=== PATIENT | female | born 1965 | race Caucasian/White ===

== ENCOUNTER 2017-09-06 08:31 | Inpatient (IN) | payer OTHER ==
--- NOTE | 2017-09-06 08:47 | EDPHY ---
HPI/HX/ROS/PE/MDM Narrative: CHIEF COMPLAINT: Cough, short of breath, fever HISTORY OF PRESENT ILLNESS: The patient is a 51 y/o female arriving via EMS for cough, shortness of breath, and fever. She lives in [place], [place] and drove her with her . Two days ago, when they left [place], she felt like she had a cold with sore throat, weakness, and fever. Symptoms continued and worsened yesterday. Last night, she developed a cough and had difficulty breathing. She reports the albuterol nebulizer en route helped her coughing and shortness of breath. She has some chest discomfort from coughing. She denies any other associated symptoms. She denies history of asthma, emphysema, blood clots, or any other associated medical history. No chills, palpitations, vomiting, diarrhea, urinary complaints, headache, lightheadedness. REVIEW OF SYSTEMS: Aside from elements discussed in the HPI, a comprehensive 10-point review of systems was reviewed and is negative. PAST MEDICAL HISTORY: Denies SOCIAL HISTORY: From [place], at bedside, on vacation VITAL SIGNS: Reviewed by me GENERAL: Well-developed, well-nourished. HEENT: Atraumatic. Eyes: No icterus, no injection. Mouth: moist mucous membranes. Erythematic. No lesions. Neck: supple with no adenopathy. LUNGS: Coarse breath sounds at base of lungs with diffuse wheezes and a harsh wheezes cough. No rhonchi or rales. CARDIAC: Tachycardic regular rate and rhythm, no rubs, murmurs or gallops. ABDOMEN: Soft, nontender, nondistended, bowel sounds normal. BACK: No CVA tenderness. EXTREMITIES: No trauma. No edema. Range of motion is normal throughout. NEURO: Alert and oriented, grossly nonfocal. SKIN: Warm and dry, no rash. PSYCHIATRIC: Normal mentation, no agitation. ED Course: 12-LEAD EKG: Please see the full report in [facility]. My interpretation: Sinus tachycardia, probable left atrial abnormalities, borderline T- abnormalities in the anterior leads The patient presents with cough and shortness of breath. She reports cold symptoms starting two days ago and worsening last night. She states her symptoms improved with an albuterol nebulizer she received en route by EMS. Her chest X-ray shows possible early infiltrate. On exam, she has course breath sounds with diffuse wheezing and a harsh wheezy cough. She is tachycardic in the 120s. Plan for CBC, basic metabolic panel, coagulation, bilirubin, abg, d- dimer, blood cultures, urinalysis, and respiratory panel to evaluate etiology. 10:50- Current labs are not concerning but the patient continues to be tachycardic and hypoxic. I feel at this point she will likely need to be admitted. 11:30- EKGS shows borderline T abnormalities and possible left atrial abnormalities. 12:10- I reassessed the patient and found her condition slightly improved. Her O2 stat was improved but she was on oxygen. I informed the patient of the results of her workup. I advised she likely will need to be admitted. She agrees to this course of action. 12:30 - Dr. Mariee will be the admitting physician. MDM: Differential diagnosis for the patient's shortness of breath was considered including but not limited to pulmonary infectious processes, COPD exacerbation, pulmonary emboli, pulmonary edema, congestive heart failure, and cardiac causes. - Data Points Imaging Results: Imaging Impressions Chest X-Ray 09/06/17 08:39 Impression: Mild perihilar bronchitis, without some questionable subsegmental atelectasis versus an early posterobasal infiltrate. Clinical correlation is suggested. Findings were discussed with Jessica Varner MD at 9:33, on 09/06/2017. Imaging: I viewed and interpreted images myself Laboratory Results: Laboratory Results 09/06/17 08:30 09/06/17 08:30 09/06/17 09/06/17 09/06/17 10:35 10:35 08:30 WBC RBC Hgb Hct MCV MCH MCHC RDW Plt Count MPV Neut % (Auto) Lymph % (Auto) [place] % (Auto) Eos % (Auto) Baso % (Auto) Nucleat RBC Rel Count Absolute Neuts (auto) Absolute Lymphs (auto) Absolute Monos (auto) Absolute Eos (auto) Absolute Basos (auto) Absolute Nucleated RBC Immature Gran % Immature Gran # PT INR APTT D-Dimer VBG Lactic Acid 1.9 mmol/L mmol/L (0.7-2.1) Sodium Potassium Chloride Carbon Dioxide Anion Gap BUN Creatinine Estimated GFR Glucose Calcium Total Bilirubin Troponin I < 0.012 ng/mL ng/mL (0.000-0.034) Urine Color YELLOW Urine Appearance CLEAR Urine pH 5.0 (5.0-7.5) Ur Specific [place] 1.023 (1.002-1.030) Urine Protein NEGATIVE (NEGATIVE) Urine Ketones 1+ H (NEGATIVE) Urine Blood NEGATIVE (NEGATIVE) Urine Nitrate NEGATIVE (NEGATIVE) Urine Bilirubin NEGATIVE (NEGATIVE) Urine Urobilinogen NEGATIVE EU EU (0.2-1.0) Ur Leukocyte Esterase NEGATIVE (NEGATIVE) Urine Glucose NEGATIVE (NEGATIVE) 09/06/17 09/06/17 09/06/17 08:30 08:30 08:30 WBC 9.45 10^3/uL 10^3/uL (3.80-9.50) RBC 4.60 10^6/uL 10^6/uL (4.18-5.33) Hgb 13.4 g/dL g/dL (12.6-16.3) Hct 40.7 % % (38.0-47.0) MCV 88.5 fL fL (81.5-99.8) MCH 29.1 pg pg (27.9-34.1) MCHC 32.9 g/dL g/dL (32.4-36.7) RDW 13.8 % % (11.5-15.2) Plt Count 294 10^3/uL 10^3/uL (150-400) MPV 10.7 fL fL (8.7-11.7) Neut % (Auto) 71.3 % % (39.3-74.2) Lymph % (Auto) 16.8 % % (15.0-45.0) [place] % (Auto) 10.1 % % (4.5-13.0) Eos % (Auto) 1.1 % % (0.6-7.6) Baso % (Auto) 0.5 % % (0.3-1.7) Nucleat RBC Rel Count 0.0 % % (0.0-0.2) Absolute Neuts (auto) 6.74 10^3/uL H 10^3/uL (1.70-6.50) Absolute Lymphs (auto) 1.59 10^3/uL 10^3/uL (1.00-3.00) Absolute Monos (auto) 0.95 10^3/uL H 10^3/uL (0.30-0.80) Absolute Eos (auto) 0.10 10^3/uL 10^3/uL (0.03-0.40) Absolute Basos (auto) 0.05 10^3/uL 10^3/uL (0.02-0.10) Absolute Nucleated RBC 0.00 10^3/uL 10^3/uL (0-0.01) Immature Gran % 0.2 % % (0.0-1.1) Immature Gran # 0.02 10^3/uL 10^3/uL (0.00-0.10) PT 13.5 SEC SEC (12.0-15.0) INR 1.01 (0.83-1.16) APTT 28.9 SEC SEC (23.0-38.0) D-Dimer 0.43 ug/mLFEU ug/mLFEU (0.00-0.50) VBG Lactic Acid Sodium 141 mEq/L mEq/L (135-145) Potassium 4.6 mEq/L mEq/L (3.3-5.0) Chloride 104 mEq/L mEq/L (97-110) Carbon Dioxide 23 mEq/l mEq/l (22-31) Anion Gap 14 mEq/L mEq/L (8-16) BUN 10 mg/dL mg/dL (7-23) Creatinine 0.9 mg/dL mg/dL (0.6-1.0) Estimated GFR > 60 Glucose 94 mg/dL mg/dL (70-100) Calcium 9.2 mg/dL mg/dL (8.5-10.4) Total Bilirubin 0.9 mg/dL mg/dL (0.1-1.4) Troponin I Urine Color Urine Appearance Urine pH Ur Specific [place] Urine Protein Urine Ketones Urine Blood Urine Nitrate Urine Bilirubin Urine Urobilinogen Ur Leukocyte Esterase Urine Glucose Medications Given: Discontinued Medications Albuterol/Ipratropium (Duoneb) 3 ml IH EDNOW ONE Stop: 09/06/17 09:05 Last Admin: 09/06/17 09:05 Dose: 3 ml Sodium Chloride (Ns) 1,000 mls @ 0 mls/hr IV ONCE ONE; Wide Open PRN Reason: Protocol Stop: 09/06/17 10:50 Last Admin: 09/06/17 10:54 Dose: 1,000 mls Methylprednisolone Sodium Succinate (Solu-Medrol) 125 mg IVP EDNOW ONE Stop: 09/06/17 10:16 Last Admin: 09/06/17 10:33 Dose: 125 mg Microbiology Results: MICROBIOLOGY 09/06/17 09:55 Nasal, Sinus - Swab Respiratory Panel (PCR) - Final Parainfluenza Virus Type 3 General Time Seen by Provider: 09/06/17 08:45 Initial Vital Signs: Initial Vital Signs Temperature (C) 37.2 C 09/06/17 08:33 Heart Rate 113 H 09/06/17 08:33 Respiratory Rate 22 H 09/06/17 08:33 Blood Pressure 125/83 H 09/06/17 08:33 O2 Sat (%) 99 09/06/17 08:33 O2 Delivery Mode Room Air O2 (L/minute) 2 Allergies/Adverse Reactions: metronidazole [From Flagyl] Allergy (Verified 09/06/17 08:39) Home Medications: Medication Instructions Recorded Cholecalciferol Vit D3 [Vitamin D3 1,000 units PO DAILY 09/06/17 (*)] Cyanocobalamin [Vitamin B12 (*)] 1,000 mcg PO DAILY 09/06/17 Eletriptan HBr [Relpax] 20 mg PO DAILY PRN 09/06/17 Multivitamins [Multivitamin (*)] 1 each PO DAILY 09/06/17 Ondansetron Odt [Zofran Odt 4 mg 4 mg PO DAILY PRN 09/06/17 (*)] Propylene Glycol/Peg 400 [SYSTANE 1 drop EACHEYE DAILY PRN 09/06/17 0.3-0.4% EYE DROPS] Acetaminophen [Tylenol 325mg (*)] 650 mg PO Q4HRS PRN tab 09/09/17 Albuterol [Proventil Inhaler HFA 2 puffs IH Q4H PRN mdi 09/09/17 (*)] Benzonatate [Tessalon Pearles] 100 mg PO TID PRN #30 cap 09/09/17 guaiFENesin/DEXTROMETHORPHAN 10 ml PO Q4HRS PRN ml 09/09/17 [Robitussin Dm Oral Liquid (*)] predniSONE [Prednisone] 40 mg PO DAILY #22 tablet 09/09/17 Departure - Departure Disposition: [facility] Clinical Impression: Viral pneumonia Condition: Fair Report Scribed for: Jessica Varner Report Scribed by: Ashwini Colon Date of Report: 09/06/17 Time of Report: 10:01 Physician Review and Approval Statement: Portions of this note were transcribed by a medical billing instructor. I personally performed a history, physical exam, medical decision making, and confirmed accuracy of information the transcribed note.
[2017-09-06] MEDS ORDERED: IPRATROPIUM/ALBUTEROL 3 ML DEYVIAL IH ONE (09:04)
[2017-09-06 10:08] LABS: PLATELET COUNT 294 10^3/uL (150-400)
[2017-09-06] MEDS ORDERED: methylPREDNISolone SOD SUCC 125 MG/2 ML VIAL IVP ONE (10:15)
[2017-09-06 10:17] LABS: INR 1.01 (0.83-1.16); PROTIME(PATIENT) 13.5 SEC (12.0-15.0)
[2017-09-06] MEDS ORDERED: NS 1,000 ML IV ONE ×2 (10:49→15:39)
--- NOTE | 2017-09-06 11:11 | CPEKG ---
Heart Rate: 110 RR Interval: 545 P-R Interval: 156 QRSD Interval: 78 QT Interval: 328 QTC Interval: 444 P Oxford: 54 QRS [place]: 17 T Wave [place]: 27 EKG Severity - BORDERLINE ECG - EKG Impression: SINUS TACHYCARDIA EKG Impression: PROBABLE LEFT ATRIAL ABNORMALITY EKG Impression: BORDERLINE T ABNORMALITIES, ANTERIOR LEADS Electronically Signed By: Jessica Varner 06-Sep-2017 15:19:50
[2017-09-06] MEDS ORDERED: ALBUTEROL 3 ML DEYVIAL IH ONE (11:52)
[2017-09-06] MEDS ORDERED: LORazepam 0.5 MG TAB PO PRN (13:45)
[2017-09-06] MEDS ORDERED: ALBUTEROL 3 ML DEYVIAL IH PRN (13:45)
[2017-09-06] MEDS ORDERED: oxyCODONE IR 5 MG TAB PO PRN (13:45)
[2017-09-06] MEDS ORDERED: ONDANSETRON 4 MG/2 ML VIAL IVP PRN (13:45)
[2017-09-06] MEDS ORDERED: ONDANSETRON DISINTEGRATING 4 MG TAB PO PRN (13:45)
[2017-09-06] MEDS ORDERED: PROMETHAZINE HCL 25 MG/ML INJ IVP PRN (13:45)
[2017-09-06] MEDS: IPRATROPIUM/ALBUTEROL 3 ML DEYVIAL IH SCH ×2 (14:46→20:19)
[2017-09-06] MEDS ORDERED: Eletriptan Hbr [Relpax] 20 MG PO PRN (15:30)
[2017-09-06] MEDS ORDERED: guaiFENesin/CODEINE PHOS 10 ML UDCUP PO PRN (15:31)
--- NOTE | 2017-09-06 15:34 | PDGENHP ---
History and Physical - Chief Complaint sob, cough - History of Present Illness 51 yo F with no PMH presenting with c/o sob, cough. Patient notes that she has been traveling from her home in [place] and has been in many public places around lots of people. Around 3 days ago she began feeling poorly with cough and sob. The cough has been productive of yellow sputum. She has had an associated sore throat as well. The cough has kept her up at night. She has not had fever or chills. She denies other complaints such as chest pain, abd pain, n/v, dysuria. History Information - Allergies/Home Medication List Allergies/Adverse Reactions: metronidazole [From Flagyl] Allergy (Verified 09/06/17 08:39) Home Medications: Cholecalciferol Vit D3 [Vitamin D3 (*)] 1,000 units PO DAILY 09/06/17 [Last Taken Unknown] Cyanocobalamin [Vitamin B12 (*)] 1,000 mcg PO DAILY 09/06/17 [Last Taken Unknown ] Eletriptan HBr [Relpax] 20 mg PO DAILY PRN 09/06/17 [Last Taken Unknown] Multivitamins [Multivitamin (*)] 1 each PO DAILY 09/06/17 [Last Taken Unknown] Ondansetron Odt [Zofran Odt 4 mg (*)] 4 mg PO DAILY PRN 09/06/17 [Last Taken Unknown] Propylene Glycol/Peg 400 [Systane 0.3-0.4% Eye Drops] 1 drop EACHEYE DAILY PRN 09/06/17 [Last Taken Unknown] I have personally reviewed and updated: family history, medical history, social history, surgical history - Past Medical History no pertinent PMH - Surgical History Reports: no pertinent surgical hx - Family History Positive for: non-pertinent - Social History Smoking Status: Never smoked Alcohol Use: Rarely Drug Use: None Additional social history: , lives in [place], traveling Review of Systems Review of Systems: ROS: 10pt was reviewed & negative except for what was stated in HPI & below Physical Exam Physical Exam: Temp Pulse Resp BP Pulse Ox 37.3 C 108 H 18 145/80 H 95 09/06/17 13:29 09/06/17 14:49 09/06/17 14:49 09/06/17 13:29 09/06/17 14:49 Constitutional: no apparent distress, appears nourished Eyes: PERRL Ears, Nose, Mouth, Throat: moist mucous membranes, hearing normal, no oral mucosal ulcers Cardiovascular: no murmur, rub, or gallop, tachycardia Respiratory: no rales or rhonchi, clear to auscultation, expiratory wheeze, other (productive cough) Gastrointestinal: normoactive bowel sounds, soft, non-tender abdomen Genitourinary: no bladder tenderness Skin: warm, normal color Musculoskeletal: full muscle strength Neurologic: AAOx3 Psychiatric: interacting appropriately, not anxious, not encephalopathic Lab Data & Imaging Review 09/06/17 08:30 09/06/17 08:30 WBC 9.45 10^3/uL (3.80-9.50) 09/06/17 08:30 RBC 4.60 10^6/uL (4.18-5.33) 09/06/17 08:30 Hgb 13.4 g/dL (12.6-16.3) 09/06/17 08:30 Hct 40.7 % (38.0-47.0) 09/06/17 08:30 MCV 88.5 fL (81.5-99.8) 09/06/17 08:30 MCH 29.1 pg (27.9-34.1) 09/06/17 08:30 MCHC 32.9 g/dL (32.4-36.7) 09/06/17 08:30 RDW 13.8 % (11.5-15.2) 09/06/17 08:30 Plt Count 294 10^3/uL (150-400) 09/06/17 08:30 MPV 10.7 fL (8.7-11.7) 09/06/17 08:30 Neut % (Auto) 71.3 % (39.3-74.2) 09/06/17 08:30 Lymph % (Auto) 16.8 % (15.0-45.0) 09/06/17 08:30 [place] % (Auto) 10.1 % (4.5-13.0) 09/06/17 08:30 Eos % (Auto) 1.1 % (0.6-7.6) 09/06/17 08:30 Baso % (Auto) 0.5 % (0.3-1.7) 09/06/17 08:30 Nucleat RBC Rel Count 0.0 % (0.0-0.2) 09/06/17 08:30 Absolute Neuts (auto) 6.74 10^3/uL (1.70-6.50) H 09/06/17 08:30 Absolute Lymphs (auto) 1.59 10^3/uL (1.00-3.00) 09/06/17 08:30 Absolute Monos (auto) 0.95 10^3/uL (0.30-0.80) H 09/06/17 08:30 Absolute Eos (auto) 0.10 10^3/uL (0.03-0.40) 09/06/17 08:30 Absolute Basos (auto) 0.05 10^3/uL (0.02-0.10) 09/06/17 08:30 Absolute Nucleated RBC 0.00 10^3/uL (0-0.01) 09/06/17 08:30 Immature Gran % 0.2 % (0.0-1.1) 09/06/17 08:30 Immature Gran # 0.02 10^3/uL (0.00-0.10) 09/06/17 08:30 PT 13.5 SEC (12.0-15.0) 09/06/17 08:30 INR 1.01 (0.83-1.16) 09/06/17 08:30 APTT 28.9 SEC (23.0-38.0) 09/06/17 08:30 D-Dimer 0.43 ug/mLFEU (0.00-0.50) 09/06/17 08:30 VBG Lactic Acid 1.9 mmol/L (0.7-2.1) 09/06/17 10:35 Sodium 141 mEq/L (135-145) 09/06/17 08:30 Potassium 4.6 mEq/L (3.3-5.0) 09/06/17 08:30 Chloride 104 mEq/L (97-110) 09/06/17 08:30 Carbon Dioxide 23 mEq/l (22-31) 09/06/17 08:30 Anion Gap 14 mEq/L (8-16) 09/06/17 08:30 BUN 10 mg/dL (7-23) 09/06/17 08:30 Creatinine 0.9 mg/dL (0.6-1.0) 09/06/17 08:30 Estimated GFR > 60 09/06/17 08:30 Glucose 94 mg/dL (70-100) 09/06/17 08:30 Calcium 9.2 mg/dL (8.5-10.4) 09/06/17 08:30 Total Bilirubin 0.9 mg/dL (0.1-1.4) 09/06/17 08:30 Troponin I < 0.012 ng/mL (0.000-0.034) 09/06/17 08:30 Urine Color YELLOW 09/06/17 10:35 Urine Appearance CLEAR 09/06/17 10:35 Urine pH 5.0 (5.0-7.5) 09/06/17 10:35 Ur Specific [place] 1.023 (1.002-1.030) 09/06/17 10:35 Urine Protein NEGATIVE (NEGATIVE) 09/06/17 10:35 Urine Ketones 1+ (NEGATIVE) H 09/06/17 10:35 Urine Blood NEGATIVE (NEGATIVE) 09/06/17 10:35 Urine Nitrate NEGATIVE (NEGATIVE) 09/06/17 10:35 Urine Bilirubin NEGATIVE (NEGATIVE) 09/06/17 10:35 Urine Urobilinogen NEGATIVE EU (0.2-1.0) 09/06/17 10:35 Ur Leukocyte Esterase NEGATIVE (NEGATIVE) 09/06/17 10:35 Urine Glucose NEGATIVE (NEGATIVE) 09/06/17 10:35 Visualized and Interpreted Chest x-ray results: Yes Chest X-Ray results: other (bronchitis) Assessment & Plan Assessment: Viral pneumonia (Acute) 51 yo F with no significant PMH admitted with sob/cough and found to have parainfluenza virus # parainfluenza pna: with associated cough, sob and wheeze. CXR with mild perihilar bronchitis and questionable early infiltrate. HD stable, no e/o sepsis # acute bronchitis: with scattered wheeze and productive cough and significant improvement s/p nebs, will continue duonebs scheduled, prn albuterol nebs, prednisone for short course and mucinex. # tachycardia: in the setting of acute illness as well as albuterol, will monitor on tele, saline bolus # sore throat: without any e/o exudate, prn cepacol # observation status Patient new to my care. Care plan reviewed with ER doctor as above.
[2017-09-06] MEDS ORDERED: TEARS/DEXTRAN 70/HYPROMELLOSE 15 ML OPHT.BTL EACHEYE PRN (16:05)
[2017-09-06] MEDS: CEPACOL LOZENGE PO PRN ×3 (16:07→20:09)
[2017-09-06] MEDS: predniSONE 20 MG TAB PO SCH (16:07)
[2017-09-06] MEDS: guaiFENesin 600 MG TAB.ER PO SCH (20:22)
[2017-09-07] MEDS: CEPACOL LOZENGE PO PRN ×3 (00:18→13:12)
[2017-09-07] MEDS: ACETAMINOPHEN 325 MG TAB PO PRN ×3 (03:42→21:45)
[2017-09-07] MEDS: IPRATROPIUM/ALBUTEROL 3 ML DEYVIAL IH SCH (05:50)
[2017-09-07] MEDS ORDERED: LEVALBUTEROL 0.31 MG/3 ML DEYVIAL IH PRN (09:26)
[2017-09-07] MEDS: CHOLECALCIFEROL VIT D3 1,000 UNITS TAB PO SCH (09:29)
[2017-09-07] MEDS: CYANO/VITAMIN B12 1000 MCG TAB PO SCH (09:30)
[2017-09-07] MEDS: MULTIVITAMINS 1 EACH TAB PO SCH (09:30)
[2017-09-07] MEDS: ENOXAPARIN 40 MG/0.4 ML SYR SC SCH (09:32)
[2017-09-07] MEDS: predniSONE 20 MG TAB PO SCH (09:35)
--- NOTE | 2017-09-07 09:46 | HOSPPROG ---
Hospitalist Progress Note Assessment/Plan: Viral pneumonia (Acute) 51 yo F with no significant PMH admitted with sob/cough and found to have parainfluenza virus. First encounter,chart reviewed. D/W RN. # parainfluenza pna: with associated cough, sob and wheeze. CXR with mild perihilar bronchitis and questionable early infiltrate. HD stable, no e/o sepsis # acute bronchitis: with scattered wheeze and productive cough and significant improvement s/p nebs, prednisone for short course and mucinex. # tachycardia: in the setting of acute illness as well as albuterol, will monitor on tele, saline bolus. Change to xopenox. # sore throat: without any e/o exudate, prn cepacol # observation status change to inpt as pt feels unable to go home today Subjective: Didn't sleep well. Still having cough. Not strong enough to go home. Objective: Vital Signs Temp Pulse Resp BP Pulse Ox 36.9 C 88 18 115/73 93 09/07/17 07:49 09/07/17 07:49 09/07/17 07:49 09/07/17 07:49 09/07/17 07:49 09/06/17 09/07/17 09/08/17 05:59 05:59 05:59 Intake Total 2540 Balance 2540 PT 13.5 SEC (12.0-15.0) 09/06/17 08:30 INR 1.01 (0.83-1.16) 09/06/17 08:30 - Physical Exam Constitutional: no apparent distress, appears nourished, not in pain Eyes: PERRL, anicteric sclera, EOMI Ears, Nose, Mouth, Throat: moist mucous membranes, hearing normal, ears appear normal Cardiovascular: tachycardia, No JVD, No edema Respiratory: no respiratory distress, reduced air movement, No rhonchi Gastrointestinal: normoactive bowel sounds, No tenderness, No ascites Skin: warm, normal color, No mottled Musculoskeletal: normal joint ROM, no joint effusions, generalized weakness Neurologic: AAOx3 Psychiatric: interacting appropriately, not anxious, not encephalopathic ICD10 Worksheet Patient Problems: Problems Problem Status Onset Viral pneumonia Acute
--- NOTE | 2017-09-07 10:52 | ASMTCASEMG ---
Living Arrangements What is your living Answers: With Spouse arrangement? Who do you live with? Type Of Residence What kind of residence do Answers: House you live in? Discharge Plan Comments Coordination Status Comments Notes: Pt is a 51 y/o female admitted for viral pneumonia, parainfluenza and reactive airways. Pt is visiting from [place]. Pt will most likely d/c independent when medically stable. No therapies ordered at this time. CM available for changes. Plan: Independent Date Signed: 09/07/2017 10:51 AM Electronically Signed By:DANIEL Elizabeth
[2017-09-07] MEDS: guaiFENesin 600 MG TAB.ER PO SCH ×2 (12:33→21:45)
--- NOTE | 2017-09-07 15:38 | PDMN ---
Medical Necessity Medical necessity: Pt meets INPT criteria per and [facility] Pneumonia, Community Acquired (hypoxemia: oxygen required to keep O2 sat >90%; hemodynamic instability: persistent tachycardia; est. LOS >2 MN).
[2017-09-08] MEDS: CEPACOL LOZENGE PO PRN ×4 (00:17→21:52)
[2017-09-08] MEDS: ACETAMINOPHEN 325 MG TAB PO PRN ×2 (02:09→21:52)
--- NOTE | 2017-09-08 08:26 | HOSPPROG ---
Hospitalist Progress Note Assessment/Plan: 51 yo F with no significant PMH admitted with sob/cough and found to have parainfluenza virus. First encounter,chart reviewed. * viral pneumonia -PCR notes parainfluenza 3 -no antiviral agents w proven efficacy -low-grade temps of 99 -blood cultures show no growth -beginnings of an infiltrate on xray, concerned about the possibility of developing pna, will monitor her closely -last time she had azithromycin; she developed C diff * bronchitis -on prednisone and Mucinex * acute hypoxemia -due to the above * tachycardia -resolved -this occurred after getting albuterol treatments *cough -coughing ongoing -will do a trial of Robitussin, has had nausea with Mucinex *Plan: she has significant wheezing and cough, feeling poorly this morning. Subjective: Rosemary is still having frequent coughing bouts and feels poorly. Objective: Vital Signs Temp Pulse Resp BP Pulse Ox 37.1 C 95 18 115/73 91 L 09/08/17 07:36 09/08/17 07:36 09/08/17 07:36 09/08/17 07:36 09/08/17 07:36 09/07/17 09/08/17 09/09/17 05:59 05:59 05:59 Intake Total 2540 Output Total 300 Balance 2540 -300 PT 13.5 SEC (12.0-15.0) 09/06/17 08:30 INR 1.01 (0.83-1.16) 09/06/17 08:30 - Physical Exam Constitutional: No no apparent distress (mild, having frequent coughing bouts) Eyes: PERRL Ears, Nose, Mouth, Throat: hearing normal Cardiovascular: regular rate and rhythym Respiratory: no respiratory distress, expiratory wheeze Gastrointestinal: normoactive bowel sounds Skin: warm Musculoskeletal: full muscle strength Neurologic: AAOx3 Psychiatric: interacting appropriately ICD10 Worksheet Patient Problems: Problems Problem Status Onset Viral pneumonia Acute
[2017-09-08] MEDS: BENZONATATE 100 MG CAP PO PRN ×2 (09:04→21:53)
[2017-09-08] MEDS: MULTIVITAMINS 1 EACH TAB PO SCH (09:04)
[2017-09-08] MEDS: predniSONE 20 MG TAB PO SCH (09:04)
[2017-09-08] MEDS: CHOLECALCIFEROL VIT D3 1,000 UNITS TAB PO SCH (09:07)
[2017-09-08] MEDS: CYANO/VITAMIN B12 1000 MCG TAB PO SCH (09:07)
[2017-09-08] MEDS: ENOXAPARIN 40 MG/0.4 ML SYR SC SCH (09:08)
[2017-09-08] MEDS: guaiFENesin 600 MG TAB.ER PO SCH (09:11)
[2017-09-08] MEDS ORDERED: GUAIFENESIN/DM 10 ML UDCUP PO PRN (10:16)
[2017-09-08] MEDS ORDERED: AZITHROMYCIN 250 MG TAB PO ONE (10:20)
[2017-09-08] MEDS: ALBUTEROL 60 PUFFS/8 GM MDI IH PRN ×2 (11:50→17:25)
[2017-09-09] MEDS: CEPACOL LOZENGE PO PRN ×2 (03:09→08:42)
[2017-09-09] MEDS: ACETAMINOPHEN 325 MG TAB PO PRN (03:09)
[2017-09-09] MEDS: BENZONATATE 100 MG CAP PO PRN (03:53)
[2017-09-09 07:51] VITALS: BP 117/81
[2017-09-09] MEDS ORDERED: LEVALBUTEROL 0.63 MG/3 ML DEYVIAL ONE (08:18)
[2017-09-09] MEDS: ALBUTEROL 60 PUFFS/8 GM MDI IH PRN (08:26)
[2017-09-09] MEDS: ENOXAPARIN 40 MG/0.4 ML SYR SC SCH (08:32)
[2017-09-09] MEDS: CHOLECALCIFEROL VIT D3 1,000 UNITS TAB PO SCH (08:32)
[2017-09-09] MEDS: CYANO/VITAMIN B12 1000 MCG TAB PO SCH (08:32)
[2017-09-09] MEDS: predniSONE 20 MG TAB PO SCH (08:32)
[2017-09-09] MEDS: MULTIVITAMINS 1 EACH TAB PO SCH (08:32)
[2017-09-09] MEDS ORDERED: AZITHROMYCIN 250 MG TAB PO SCH (09:00)
--- NOTE | 2017-09-09 11:56 | HOSPPROG ---
Hospitalist Progress Note Assessment/Plan: 51 yo F with no significant PMH admitted with sob/cough and found to have parainfluenza virus. * viral pneumonia -PCR notes parainfluenza 3 -no antiviral agents w proven efficacy -low-grade temps of 99 -blood cultures show no growth -much improved today * bronchitis -on prednisone and Mucinex * acute hypoxemia -resolved * tachycardia -resolved -this occurred after getting albuterol treatments *cough -resolved, the Mariya Gaffney helped *Plan: dc home today, will have [facility] fill the scripts Subjective: Saadia is feeling much better today. Coughing less. Objective: Vital Signs Temp Pulse Resp BP Pulse Ox 36.0 C 68 18 117/81 H 68 L 09/09/17 07:51 09/09/17 08:25 09/09/17 08:25 09/09/17 07:51 09/09/17 08:25 09/08/17 09/09/17 09/10/17 05:59 05:59 05:59 Intake Total 400 Output Total 300 1400 Balance -300 -1000 PT 13.5 SEC (12.0-15.0) 09/06/17 08:30 INR 1.01 (0.83-1.16) 09/06/17 08:30 - Physical Exam Constitutional: no apparent distress, appears nourished, not in pain Eyes: PERRL Ears, Nose, Mouth, Throat: hearing normal Cardiovascular: regular rate and rhythym Respiratory: no respiratory distress, clear to auscultation, bronchial breath sounds (very few, lung sounds much improved since yesterday) Skin: warm Musculoskeletal: full muscle strength Neurologic: AAOx3 Psychiatric: interacting appropriately ICD10 Worksheet Patient Problems: Problems Problem Status Onset Viral pneumonia Acute
--- NOTE | 2017-09-09 13:42 | GDS ---
[f rep st] DISCHARGE SUMMARY DISCHARGE DIAGNOSES: 1. Viral pneumonia with noted parainfluenza 3. 2. Bronchitis. 3. Acute hypoxemia. 4. Tachycardia. 5. Cough. BRIEF HISTORY: The patient is a 51-year-old woman who has no significant past medical history. She presented to the emergency room with coughing and shortness of breath. She had been [facility] [place] and noticed that she started feeling poorly when she came to [place]. She had a PCR performed, which showed a parainfluenza virus. She was treated with steroids and supportive care . Today, she is feeling much better and will be discharged home on a steroid taper. HOSPITAL COURSE: 1. Viral pneumonia. Antiviral agents do not have any proven efficacy. She was treated with support nathalie care. Blood cultures were checked, which showed no growth. 2. Bronchitis. The prednisone has helped her significantly. Avoided antibiotics during this hospit al stay. She had a severe reaction to antibiotics and developed Clostridium difficile, which was dif ficult to treat. 3. Acute hypoxemia, resolved. She is on room air. 4. Tachycardia. I suspect this is after she received the albuterol treatment. This has also resolv ed. 5. Cough. Tessalon Perles have helped the most. CONDITION ON DISCHARGE: Stable. Blood pressure is 117/81, heart rate 72. Respiratory rate is 16. O2 saturation on room air is 98%. Temperature is 36 degrees Celsius. DISCHARGE MEDICATIONS: Please see the EMR. DISCHARGE INSTRUCTIONS: 1. To take it easy for the next several days. 2. To take the prednisone in the morning with food. 3. Get a chest x-ray in 6 weeks for followup care. /[id number]/MODL
[2017-09-12] MEDS ORDERED: ALBUTEROL 3 ML DEYVIAL IH PRN (09:32)
== END 2017-09-09 14:27 | disposition home or self-care (01) | DRG 195 ==
LOC: OBSVTOIN 12:25 → F3E 12:59
PROVIDERS: ADMIT Hospitalist; ATTEND Hospitalist
DX: J12.2 Parainfluenza virus pneumonia (principal); J40 Bronchitis, not specified as acute or chronic; R00.0 Tachycardia, unspecified; R09.02 Hypoxemia
CPT/HCPCS: G0378; J1650; J2930; J7512